=== PATIENT | male | born 1935 | race Caucasian/White ===

== ENCOUNTER 2016-10-18 14:29 | Inpatient (IN) | payer MEDICARE ==
[~2016-10-18] VITALS: Ht 177.8 cm; Wt 76.9 kg
[~2016-10-18 14:29] MED LIST: AMLO10TA2 PO; ASPI-110 PO; DICL75TA PO; GABA400C5 PO; HYDR25TA5 PO; LOVA20TA PO; METO25TA6 PO; MINEOIL2 PO; MULTTAB6; OMEP20TA PO; PROS5TAB PO; STOO100C; [UNRECOGNIZED DRUG - CODE] PO
[2016-10-18 14:34] VITALS: BP 159/82; PULSE 89; RESP 18; TEMP 98; O2SAT 93
--- NOTE | 2016-10-18 17:37 | RADRPT ---
EXAM DATE/TIME: 10/18/2016 16:09 [facility] COMPARISON: No previous studies available for comparison. INDICATIONS : Trauma to pelvis post fall today MEDICAL HISTORY : None. SURGICAL HISTORY : None. ENCOUNTER: Initial ACUITY: 1 day PAIN SCORE: 0/10 LOCATION: Pelvis FINDINGS: Degenerative changes and scoliosis of the lumbar spine are noted. Mild degenerative changes are note d involving the hip joints bilaterally. Radiation seed implants are noted in the expected region of the prostate gland. There is a mixed sclerotic and lytic lesion involving the subtrochanteric region of the right proximal femur. This is nonspecific. There is no acute fracture or dislocation. CONCLUSION: 1. Mixed sclerotic and lytic lesion involving the subtrochanteric region of the right proximal femur which is nonspecific. 2. Degenerative changes and scoliosis of the lower lumbar spine. 3. Degenerative changes involving the hip joints bilaterally. 4. No acute fracture or dislocation. Sean Wu MD on October 18, 2016 at 17:26 Board Certified Radiologist. This report was verified electronically.
--- NOTE | 2016-10-18 17:37 | RADRPT ---
EXAM DATE/TIME: 10/18/2016 16:13 [facility] COMPARISON: No previous studies available for comparison. INDICATIONS : Right ankle pain post fall today MEDICAL HISTORY : None. SURGICAL HISTORY : None. ENCOUNTER: Initial ACUITY: 1 day PAIN SCORE: 10/10 LOCATION: Right entire ankle FINDINGS: There is an Achilles calcaneal spur. There is no acute fracture or dislocation. The ankle mortise i s intact. CONCLUSION: 1. No acute fracture or dislocation. 2. Achilles calcaneal spur. Sean Wu MD on October 18, 2016 at 17:28 Board Certified Radiologist. This report was verified electronically.
--- NOTE | 2016-10-18 17:39 | RADRPT ---
EXAM DATE/TIME: 10/18/2016 16:15 [facility] COMPARISON: No previous studies available for comparison. INDICATIONS : Right foot pain post fall today MEDICAL HISTORY : None. SURGICAL HISTORY : None. ENCOUNTER: Initial ACUITY: 1 day PAIN SCORE: 9/10 LOCATION: Right entire foot FINDINGS: Mild degenerative changes are noted involving the right first tarsometatarsal joint and metatarsophal angeal joint. There is no acute fracture or dislocation. Achilles calcaneal spurring is noted. CONCLUSION: 1. No acute fracture or dislocation. 2. Mild degenerative changes involving the right first tarsometatarsal and metatarsophalangeal joints . 3. Achilles calcaneal spur. Sean Wu MD on October 18, 2016 at 17:31 Board Certified Radiologist. This report was verified electronically.
[2016-10-18 17:54] LABS: AUTOMATED NEUTROPHIL # 11.3 TH/MM3 (1.8-7.7); BASOPHIL % 0.1 % (0.0-2.0); HEMATOCRIT 42.7 % (39.0-51.0); HEMO FLAGS DIFF FINAL; LYMPH % 5.8 % (9.0-44.0); LYMPHOCYTE # 0.8 TH/MM3 (1.0-4.8); MEAN CELL VOLUME 95.1 FL (80.0-100.0); MEAN CORPUSCULAR HEMOGLOBIN 32.7 PG (27.0-34.0); MEAN CORPUSCULAR HGB CONC 34.3 % (32.0-36.0); NEUT % 87.1 % (16.0-70.0); PLATELET COUNT 221 TH/MM3 (150-450); RED BLOOD COUNT 4.49 MIL/MM3 (4.50-5.90); RED CELL DISTRIBUTION WIDTH 15.2 % (11.6-17.2)
[2016-10-18 18:10] LABS: BICARBONATE 25.8 MEQ/L (21.0-32.0); MAGNESIUM 2.5 MG/DL (1.5-2.5); POTASSIUM 3.9 MEQ/L (3.5-5.1)
--- NOTE | 2016-10-18 18:45 | PD ---
HPI Chief Complaint: General Weakness Time Seen by Provider: 18:40 Travel History International Travel<30 days: No Contact w/Intl Traveler<30days: No Traveled to known affect area: No History of Present Illness HPI 81-year-old male that presents to the ED for evaluation of right leg weakness. Per patient he has a chronic history of spinal stenosis. Per patient he had an injection that is new for him on his lower back for the chronic pain which is not sure why he got but ever since she's been okay. Per patient today he was getting up to get his pills and then he went to a different area of his house and he all of a sudden felt like his right leg was numb and fell. Per patient he felt like his legs were likely and he can't walk on them. Per patient mainly on the right than the left. Per patient he had no pain but now he does have some pain on the ankle secondary to the fall. He does state that he did hit his head but denies losing consciousness. Patient does have an abrasion to his right side of the face. He states that at the time when he had the weakness he did not had any palpitations or chest pain. He denies any of this at this time. Denies any dizziness. No lightheadedness. No chest pain or shortness of breath. Per patient he has no pain at this time. He does feel that his leg is weak and numb. He denies any problems with bowel movement or urine. No groin weakness. Per patient she's never had this before. Nothing seems to make it better or worse. PFSH Past Medical History Hx Anticoagulant Therapy: No Heart Rhythm Problems: No Cardiac Catheterization: Yes Cardiovascular Problems: Yes (HTN ) High Cholesterol: Yes Congestive Heart Failure: No Coronary Artery Disease: Yes Diabetes: No Diminished Hearing: No Diverticulitis: Yes Gastrointestinal Disorders: Yes (acid reflux ) GERD: Yes Hypertension: Yes Neurologic: Yes (SPINAL STENOSIS) Immunizations Current: Yes Myocardial Infarction: No Past Surgical History Coronary Artery Bypass Graft: No Tonsillectomy: Yes (as child ) Social History Alcohol Use: No Tobacco Use: No Substance Use: No Allergies-Medications (Allergen,Severity, Reaction): Coded Allergies: Erythromycins (Verified Allergy, Unknown, 10/18/16) Sulfa (Verified Allergy, Unknown, 10/18/16) Codeine (Verified Adverse Reaction, Intermediate, NAUSEA/VOMITING, 10/18/16 ) Reported Meds & Prescriptions Reported Meds & Active Scripts Active Reported Amlodipine (Amlodipine Besylate) 10 Mg Tab 10 Mg PO DAILY Ultram ER (Tramadol HCl) 300 Mg Aliyha 50 Mg PO DAILY Proscar (Finasteride) 5 Mg Tab 5 Mg PO DAILY Do not crush. Multi-Vitamin (Multiple Vitamin) 1 Tab Tab Metoprolol Succinate ER 24 HR (Metoprolol Succinate) 25 Mg Tab 25 Mg PO DAILY Lovastatin 20 Mg Tab 20 Mg PO DAILY Hydrochlorothiazide 25 Mg Tab 25 Mg PO DAILY Omeprazole 20 Mg Tab 20 Mg PO DAILY Gabapentin 400 Mg Cap 1,200 Cap PO Q6HR Aspirin 81 (Aspirin) 81 Mg Tabdr 81 Mg PO DAILY Mineral Oil Liq (Mineral Oil) 15 Ml Liq 30 Ml PO DAILY PRN Diclofenac Sodium DR (Diclofenac Sodium) 75 Mg Tabdr 75 Mg PO BID Review of Systems General / Constitutional: No: Fever, Chills, Weight Gain, Weight Loss, Other Eyes: No: Diploplia, Blurred Vision, Photophobia, Drainage, Redness, Foreign Body Sensation, Pain, Tearing, Blind Spots, Visual changes, Blindness, Other HENT: No: Headaches, Vertigo, Lightheadedness, Sore Throat, Rhinitis, Rhinorrhea, Congestion, Nosebleed, Neck Stiffness, Neck Pain, Masses, Gingival Bleeding, Dental Difficulties, Ear Discharge, Earache, Other Cardiovascular: No: Chest Pain or Discomfort, Palpitations, Irregular Rhythm, Tachycardia, Diaphoresis, Syncope, Dyspnea on exertion, Varicosities, Edema, Cyanosis, Varicosities, Phlebitis, Claudication, Other Respiratory: No: Cough, Shortness of Breath, Wheezing, Sneezing, Orthopnea, Hemoptysis, Stridor, Night Sweats, Pleuritic Pain, Other Gastrointestinal: No: Nausea, Vomiting, Diarrhea, Abdominal Pain, Hematemesis, Hematochezia, Constipation, Changes in Bowel Habits, Indigestion, Dysphagia, Loss of Appetite, Other Genitourinary: No: Urgency, Frequency, Dysuria, Nocturia, Hematuria, Decreased Urinary Output, Oliguria, Hesitancy, Dribbling, Incontinence, Pelvic Pain, Flank Pain, Dyspareunia, Discharge, Dysmenorrhea, Menorrhagia, Metorrhagia, Vaginal Bleeding, Other Musculoskeletal: Positive: Weakness, No: Myalgias, Arthralgias, Limited ROM, Cramping, Edema, Pain, Atrophy, Other Skin: No Rash, No Itching, No Dryness, No Lumps, No Hives, No Change in Pigmentation, No Change in nails, No Alopecia, No Lesions, No Breast Lumps, No Breast Tenderness, No Breast Swelling, No Other Neurologic: Positive: Weakness, Paresthesia, Sensory Disturbance, No: Dizziness, Syncope, Focal Abnormalities, Coordination Problem, Tremor, Ataxia, Headache, Change in Mentation, Slurred Speech, Incontinence, Seizures, Other Psychiatric: No: Anxiety, Depression, Suicidal Ideations, Disorder of Thought, Mood Disorder, Substance Abuse, Homicidal Ideation, Other Endocrine: No: Heat Intolerance, Cold Intolerance, Polyuria, Polydipsia, Other Hematologic/Lymphatic: No: Easy Bruising, Lymph Node Enlargement, Other Physical Exam Narrative GENERAL: SKIN: Warm and dry. HEAD: Atraumatic. Normocephalic. EYES: Pupils equal and round 4 mm reactive to light and accommodation. No scleral icterus. No injection or drainage. ENT: No nasal bleeding or discharge. Mucous membranes pink and moist. Tongue is midline. No uvula deviation. NECK: Trachea midline. No JVD. CARDIOVASCULAR: Regular rate and rhythm. No murmurs, S3, S4. RESPIRATORY: No accessory muscle use. Clear to auscultation. Breath sounds equal bilaterally. GASTROINTESTINAL: Abdomen soft, non-tender, nondistended. Hepatic and splenic margins not palpable. MUSCULOSKELETAL: Extremities without clubbing, cyanosis, or edema. No obvious deformities. Full range of motion of the upper and lower extremities bilaterally. 5 out of 5 strength bilaterally. Patient does have sensation deficits on the right leg compared to the left. Patient does have 2+ DTRs. Babinski negative bilaterally. 2+ pulses bilaterally. NEUROLOGICAL: Awake and alert. No obvious cranial nerve deficits. Motor grossly within normal limits. Five out of 5 muscle strength in the arms and legs. Normal speech. PSYCHIATRIC: Appropriate mood and affect; insight and judgment normal. Data Data Last Documented VS Vital Signs Date Time Temp Pulse Resp B/P Pulse Ox O2 Delivery O2 Flow Rate FiO2 10/18/16 14:34 98.0 89 18 159/82 93 Orders Complete Blood Count With Diff (10/18/16 15:55) Basic Metabolic Panel (Bmp) (10/18/16 15:55) Magnesium (Mg) (10/18/16 15:55) Iv Access Insert/Monitor (10/18/16 15:55) Ankle, Complete ([id number]) (10/18/16 15:55) Foot, Complete ([id number]) (10/18/16 15:55) Ice/Cold Pack (10/18/16 15:55) Pelvis, Ap Only (Routine) (10/18/16 15:55) Mri L Spine W&W/O Contrast (10/18/16 ) Mri T Spine W & W/O Contrast (10/18/16 ) Mri C Spine W&W/O Contrast (10/18/16 ) Ct Brain W/O Iv Contrast(Rout) (10/18/16 ) Lorazepam Inj (Ativan Inj) (10/18/16 19:15) Lorazepam Inj (Ativan Inj) (10/18/16 20:15) Gadodiamide Pf Inj (Omniscan Pf Inj) (10/18/16 21:01) Chest, Single Ap (10/18/16 ) Labs Laboratory Tests Test 10/18/16 17:40 White Blood Count 13.0 TH/MM3 Red Blood Count 4.49 MIL/MM3 Hemoglobin 14.7 GM/DL Hematocrit 42.7 % Mean Corpuscular Volume 95.1 FL Mean Corpuscular Hemoglobin 32.7 PG Mean Corpuscular Hemoglobin 34.3 % Concent Red Cell Distribution Width 15.2 % Platelet Count 221 TH/MM3 Mean Platelet Volume 7.0 FL Neutrophils (%) (Auto) 87.1 % Lymphocytes (%) (Auto) 5.8 % Monocytes (%) (Auto) 7.0 % Eosinophils (%) (Auto) 0.0 % Basophils (%) (Auto) 0.1 % Neutrophils # (Auto) 11.3 TH/MM3 Lymphocytes # (Auto) 0.8 TH/MM3 Monocytes # (Auto) 0.9 TH/MM3 Eosinophils # (Auto) 0.0 TH/MM3 Basophils # (Auto) 0.0 TH/MM3 CBC Comment DIFF FINAL Differential Comment Sodium Level 136 MEQ/L Potassium Level 3.9 MEQ/L Chloride Level 101 MEQ/L Carbon Dioxide Level 25.8 MEQ/L Anion Gap 9 MEQ/L Blood Urea Nitrogen 27 MG/DL Creatinine 1.05 MG/DL Estimat Glomerular Filtration 68 ML/MIN Rate Random Glucose 109 MG/DL Calcium Level 8.8 MG/DL Magnesium Level 2.5 MG/DL MDM Medical Decision Making Medical Screen Exam Complete: Yes Emergency Medical Condition: Yes Medical Record Reviewed: Yes Interpretation(s) CBC & BMP Diagram 10/18/16 17:40 Differential Diagnosis Cervicitis versus discitis versus fall versus weakness versus neuropathy versus cauda equina versus spinal abscess Narrative Course 81-year-old male that presents to the ED for evaluation of right leg weakness. Patient was properly examined and was found to have signs and symptoms consistent with appears to be right leg weakness. Unclear etiology at this time but there is some concern for infection secondary to the recent shot that apparently is new for the patient. I spoke with my attending Dr. Camacho who recommends MRI with contrast. Labs were drawn. Patient agrees first to proceed. X-rays were done of the ankle as well as CT of the head to rule out bleed and fracture secondary to the fall. Case was signed out to Dr. Beebe who will dispo the patient. Antonio Pedroza Oct 18, 2016 18:45
[2016-10-18] MEDS ORDERED: LORazepam 2 MG/ML VIAL IV PUSH ONE ×2 (19:15→20:15)
[2016-10-18] MEDS ORDERED: GADODIAMIDE PF 287 MG/ML 5 ML VIAL (for RAD MRI) IV ONE (21:01)
--- NOTE | 2016-10-18 21:33 | RADRPT ---
EXAM DATE/TIME: 10/18/2016 20:43 [facility] COMPARISON: No previous studies available for comparison. INDICATIONS : Right leg weakness causing fall with head trauma. RADIATION DOSE: 41.58 CTDIvol (mGy) MEDICAL HISTORY : Hypertension. Chronic obstructive pulmonary disease. Carcinoma, prostate.Spinal stenosis. SURGICAL HISTORY : Tonsillectomy. ENCOUNTER: Initial ACUITY: 1 day PAIN SCALE: 5/10 LOCATION: cranial TECHNIQUE: Multiple contiguous axial images were obtained of the head. Using automated exposure control and adj ustment of the mA and/or kV according to patient size, radiation dose was kept as low as reasonably a chievable to obtain optimal diagnostic quality images. FINDINGS: CEREBRUM: The ventricles are normal for age. No evidence of midline shift, mass lesion, hemorrhage or acute in farction. No extra-axial fluid collections are seen. POSTERIOR FOSSA: The cerebellum and brainstem are intact. The 4th ventricle is midline. The cerebellopontine angle i s unremarkable. EXTRACRANIAL: The visualized portion of the orbits is intact. SKULL: The calvaria is intact. No evidence of skull fracture. CONCLUSION: Normal examination for a patient of this age. Cresencio King MD on October 18, 2016 at 21:31 Board Certified Radiologist. This report was verified electronically.
--- NOTE | 2016-10-18 21:44 | RADRPT ---
EXAM DATE/TIME: 10/18/2016 19:35 [facility] COMPARISON: No previous studies available for comparison. INDICATIONS : Inability to ambulate. CONTRAST: 20 cc Omniscan (gadodiamide) IV MEDICAL HISTORY : Injections in lumbar spine. SURGICAL HISTORY : Tonsillectomy. ENCOUNTER: Initial ACUITY: 3 day PAIN SCORE: 0/10 LOCATION: neck TECHNIQUE: Multiplanar, multisequence MRI examination of the cervical spine was performed. FINDINGS: No abnormal enhancing lesions in the cervical spine. No cord masses or cord edema. No significant cor d compression. There is degenerative disc disease at C3-4-5-6-7 with osteophytic ridging effacing the thecal sac ant eriorly without significant cord compression. No fracture or spondylolisthesis. CONCLUSION: 1. No acute findings within the cervical spine. No fracture or spondylolisthesis. No significant cord compression or cord edema. Moderate degenerative disc disease results in effacement of the thecal sa c around the cord at multiple levels between C3 and C7 but without significant cord compression. Cresencio King MD on October 18, 2016 at 21:40 Board Certified Radiologist. This report was verified electronically.
--- NOTE | 2016-10-18 21:47 | RADRPT ---
EXAM DATE/TIME: 10/18/2016 19:35 [facility] COMPARISON: No previous studies available for comparison. INDICATIONS : Inability to ambulate. CONTRAST: 20 cc Omniscan (gadodiamide) IV MEDICAL HISTORY : Injections in Lumbar spine. SURGICAL HISTORY : Tonsillectomy. ENCOUNTER: Initial ACUITY: 3 day PAIN SCORE: 0/10 LOCATION: low back TECHNIQUE: Multiplanar multisequence MRI of the lumbar spine was performed with and without contrast. FINDINGS: No abnormal enhancing lesions within the spinal canal of the lumbar spine. There is some enhancement around the posterior elements at L3-4-5 related to degenerative changes. No significant stenosis at Q72-T1-D9-L8. L3-4 a broad-based posterior disc protrusion and a focal moderate to severe canal stenosis and latera l recess stenosis without significant neural foraminal stenosis. At L4-5 there is a broad-based posterior mild disc protrusion with a mild canal and lateral recess st enosis. At L5-S1 there are pars defects with minimal anterolisthesis. There is a moderate central canal steno sis and moderate left-sided neural foraminal stenosis. CONCLUSION: 1. At L3-4 there is a focal moderate to severe central canal and lateral recess stenosis. 2. At L4-5 there is a mild canal and lateral recess stenosis. 3. 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 Moderate left-sided neural foraminal stenosis. 4. Facet arthropathy posteriorly with some enhancement around the posterior facet joints and between the spinous processes. Cresencio King MD on October 18, 2016 at 21:42 Board Certified Radiologist. This report was verified electronically.
--- NOTE | 2016-10-18 21:49 | RADRPT ---
EXAM DATE/TIME: 10/18/2016 19:35 [facility] COMPARISON: No previous studies available for comparison. INDICATIONS : Inability to ambulate. CONTRAST: 20 cc Omniscan (gadodiamide) IV MEDICAL HISTORY : Injections in Lumbar spine. SURGICAL HISTORY : Tonsillectomy. ENCOUNTER: Initial ACUITY: 3 day PAIN SCORE: 0/10 LOCATION: t-spine TECHNIQUE: Multiplanar multisequence MRI of the thoracic spine was performed. FINDINGS: VERTEBRA: Normal vertebral body height. Homogeneous marrow signal. ALIGNMENT: Normal. CORD: Normal position and configuration. POST CONTRAST: No abnormal areas of contrast enhancement seen. T1-T2: Normal. T2-T3: The thecal sac has a normal diameter. No evidence of disc bulge or protrusion. T3-T4: The thecal sac has a normal diameter. No evidence of disc bulge or protrusion. T4-T5: The thecal sac has a normal diameter. No evidence of disc bulge or protrusion. T5-T6: The thecal sac has a normal diameter. No evidence of disc bulge or protrusion. T6-T7: The thecal sac has a normal diameter. No evidence of disc bulge or protrusion. T7-T8: The thecal sac has a normal diameter. No evidence of disc bulge or protrusion. T8-T9: The thecal sac has a normal diameter. No evidence of disc bulge or protrusion. T9-T10: The thecal sac has a normal diameter. No evidence of disc bulge or protrusion. T10-T11: The thecal sac has a normal diameter. No evidence of disc bulge or protrusion. T11-T12: The thecal sac has a normal diameter. No evidence of disc bulge or protrusion. T12-L1: The thecal sac has a normal diameter. No evidence of disc bulge or protrusion. CONCLUSION: 1. No canal stenosis. No discrete disc protrusions and no cord impingement or cord edema. Mild to mod erate degenerative disc disease throughout the thoracic spine. Cresencio King MD on October 18, 2016 at 21:46 Board Certified Radiologist. This report was verified electronically.
[2016-10-18 22:00] VITALS: BP 146/74; PULSE 74; RESP 18; O2SAT 94
[2016-10-18] MEDS ORDERED: ASPIRIN 325 MG TAB PO ONE (23:00)
--- NOTE | 2016-10-18 23:00 | RADRPT ---
EXAM DATE/TIME: 10/18/2016 22:02 [facility] COMPARISON: No previous studies available for comparison. INDICATIONS : Short of breath with a cough. MEDICAL HISTORY : Emphysema. Carcinoma, prostatic. SURGICAL HISTORY : None. ENCOUNTER: Initial ACUITY: 1 day PAIN SCORE: 3/10 LOCATION: Bilateral chest FINDINGS: A single view of the chest demonstrates the lungs to be symmetrically aerated without evidence of mas s, infiltrate or effusion. Subsegmental opacity present at the lung bases. The cardiomediastinal con tours are unremarkable. Osseous structures are intact. CONCLUSION: 1. Linear scarring and atelectasis at the lung bases. No effusion or pneumothorax. Cresencio King MD on October 18, 2016 at 22:58 Board Certified Radiologist. This report was verified electronically.
[2016-10-19] VITALS (7 sets, daily range): BP systolic 123–146; BP diastolic 70–86; PULSE 76–88; RESP 16–18; TEMP 97.2–99.2; O2SAT 93–97
[2016-10-19] MEDS ORDERED: traMADol HCL 50 MG TAB PO ONE (00:45)
[2016-10-19] MEDS: GABAPENTIN 400 MG CAP PO SCH ×4 (00:51→18:05)
[2016-10-19] MEDS: PRAVASTATIN SOD 20 MG TAB PO SCH ×2 (00:52→21:00)
--- NOTE | 2016-10-19 00:58 | PD ---
Physical Exam Narrative Patient originally seen in triage by the PA, where workup was initiated. Patient is an 81-year-old male with history of spinal stenosis, who comes in after both his legs went numb tonight and he fell to the ground. He had a facet block done on Friday for back pain. He says he was feeling fine until all of a sudden this happen today. He says when it happened he felt like he couldn't move. He says he also felt weakness in his arms, and thought he was having a stroke. There is a question of whether he had some left-sided weakness at the time. He says otherwise he has been feeling fine. He denies having any fever or chills. He denies cough or cold. He denies headache, nausea, vomiting. Data Data Last Documented VS Vital Signs Date Time Temp Pulse Resp B/P Pulse Ox O2 Delivery O2 Flow Rate FiO2 10/18/16 14:34 98.0 89 18 159/82 93 Orders Complete Blood Count With Diff (10/18/16 15:55) Basic Metabolic Panel (Bmp) (10/18/16 15:55) Magnesium (Mg) (10/18/16 15:55) Iv Access Insert/Monitor (10/18/16 15:55) Ankle, Complete ([id number]) (10/18/16 15:55) Foot, Complete ([id number]) (10/18/16 15:55) Ice/Cold Pack (10/18/16 15:55) Pelvis, Ap Only (Routine) (10/18/16 15:55) Mri L Spine W&W/O Contrast (10/18/16 ) Mri T Spine W & W/O Contrast (10/18/16 ) Mri C Spine W&W/O Contrast (10/18/16 ) Ct Brain W/O Iv Contrast(Rout) (10/18/16 ) Lorazepam Inj (Ativan Inj) (10/18/16 19:15) Lorazepam Inj (Ativan Inj) (10/18/16 20:15) Gadodiamide Pf Inj (Omniscan Pf Inj) (10/18/16 21:01) Chest, Single Ap (10/18/16 ) Aspirin (Aspirin) (10/18/16 23:00) Mri Brain W/O Contrast (10/18/16 ) Admit Order (Ed Use Only) (10/18/16 ) Labs Laboratory Tests Test 10/18/16 17:40 White Blood Count 13.0 TH/MM3 Red Blood Count 4.49 MIL/MM3 Hemoglobin 14.7 GM/DL Hematocrit 42.7 % Mean Corpuscular Volume 95.1 FL Mean Corpuscular Hemoglobin 32.7 PG Mean Corpuscular Hemoglobin 34.3 % Concent Red Cell Distribution Width 15.2 % Platelet Count 221 TH/MM3 Mean Platelet Volume 7.0 FL Neutrophils (%) (Auto) 87.1 % Lymphocytes (%) (Auto) 5.8 % Monocytes (%) (Auto) 7.0 % Eosinophils (%) (Auto) 0.0 % Basophils (%) (Auto) 0.1 % Neutrophils # (Auto) 11.3 TH/MM3 Lymphocytes # (Auto) 0.8 TH/MM3 Monocytes # (Auto) 0.9 TH/MM3 Eosinophils # (Auto) 0.0 TH/MM3 Basophils # (Auto) 0.0 TH/MM3 CBC Comment DIFF FINAL Differential Comment Sodium Level 136 MEQ/L Potassium Level 3.9 MEQ/L Chloride Level 101 MEQ/L Carbon Dioxide Level 25.8 MEQ/L Anion Gap 9 MEQ/L Blood Urea Nitrogen 27 MG/DL Creatinine 1.05 MG/DL Estimat Glomerular Filtration 68 ML/MIN Rate Random Glucose 109 MG/DL Calcium Level 8.8 MG/DL Magnesium Level 2.5 MG/DL MDM Supervised Visit with NIKO: Yes Narrative Course Currently, patient has equal strength in his bilateral lower extremities as well as upper extremities. He is complaining of pain to his right ankle. X- ray of the ankle was negative for fracture. Labs were sent show a white count of 13. However patient has no infectious symptoms. MRI of the entire spine was performed shows degenerative changes, no signs of infection or abscess. No spinal impingement seen. CT of the head was performed shows no acute abnormalities. X-rays of the ankle , foot, pelvis, chest show no acute abnormalities. I spoke with Dr. Alexander of neurology regarding the patient. He suggests aspirin as well as MRI of the brain and carotid ultrasound to complete a stroke workup. Patient will be admitted for further management. Diagnosis Primary Impression: Weakness Additional Impression: Fall Qualified Code: W19.XXXA - Fall, initial encounter Admitting Information Admitting Physician Requests: Admit Dominga Beebe MD Oct 19, 2016 00:58
[2016-10-19] MEDS: traMADol HCL 50 MG TAB PO SCH ×2 (08:24→17:10)
--- NOTE | 2016-10-19 09:14 | RADRPT ---
EXAM DATE/TIME: 10/19/2016 08:48 [facility] COMPARISON: CT BRAIN W/O CONTRAST, October 18, 2016, 20:43. INDICATIONS : Inability to ambulate. MEDICAL HISTORY : Steroid injections lumbar spine. SURGICAL HISTORY : Tonsillectomy. ENCOUNTER: Subsequent ACUITY: 2 day PAIN SCORE: 0/10 LOCATION: cranial TECHNIQUE: Multiplanar, multisequence MRI of the brain was performed without contrast. FINDINGS: CEREBRUM: The ventricles are normal for age. No evidence of midline shift, mass lesion, hemorrhage or acute in farction. No extraaxial fluid collections are seen. The pituitary gland and suprasellar cistern are normal in configuration. WHITE MATTER: Scattered T2 signal abnormalities are seen in the white matter. POSTERIOR FOSSA: The cerebellum and brainstem are intact. The 4th ventricle is midline. The cerebellopontine angle is unremarkable. The cerebellar tonsils are normal in position. DIFFUSION IMAGING: Focal high flair abnormality in the left frontal parafalcine tellez matter consistent with acute lacuna r infarct. EXTRACRANIAL: The visualized portions of the orbits and paranasal sinuses are unremarkable. T2 signal abnormality w ithin both mastoid air cells. CONCLUSION: 1. Focal lacunar infarct left parafalcine frontal lobe. 2. 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 Collin Henry MD on October 19, 2016 at 9:08 Board Certified Radiologist. This report was verified electronically.
[2016-10-19] MEDS: SODIUM CHLOR 0.9% 1000 ML INJ 1,000 ML IV SCH ×2 (10:31→20:23)
[2016-10-19] MEDS: CLOPIDOGREL 75 MG TAB PO SCH (11:11)
[2016-10-19] MEDS: ASPIRIN EC 325 MG TABEC PO SCH (11:11)
[2016-10-19] MEDS ORDERED: LORazepam 2 MG/ML VIAL IV PUSH ONE (11:15)
[2016-10-19] MEDS ORDERED: GADODIAMIDE PF 287 MG/ML 20 ML VIAL (for RAD MRI) IV ONE (12:03)
--- NOTE | 2016-10-19 12:37 | MB ---
cc: ANDREI JOE DATE OF CONSULTATION: 10/19/2016. HISTORY OF PRESENT ILLNESS: The patient is an 81-year-old right-handed man with a history of hypertension, hypercholesterolemia, stable prostate cancer without metastasis who has had some low back pain. He has spinal stenosis, multilevel. He usually takes a baby aspirin a day but not for the last week as he had a facet injection done on Friday, which was about three days ago, and then yesterday, Friday, he felt like his legs gave out like they were numb, more on the right than the left, and he fell to the ground and hurt his right arm. No chest pain, palpitations or headache associated with that or vision change. He came into the emergency room. MRI of the cervical and thoracic spine was negative. MRI of the lumbosacral spine showed multilevel degenerative joint disease. MRI of the brain however shows a left acute small peripheral anterior cerebral artery infarct, medial frontoparietal region right on the left medial region by the interhemispheric fissure. He was in the hospital here with leg weakness from the emergency room back in 2013. He says his legs felt like Jello. He let himself down to the ground at that time. Brief generalized weakness in both of his legs, not one more than the other. ALLERGIES: 1. ERYTHROMYCIN. 2. SULFA. 3. CODEINE. MEDICATIONS: 1. Ultram. 2. Amlodipine. 3. Proscar. 4. A multivitamin. 5. Metoprolol. 6. Lovastatin. 7. Hydrochlorothiazide. 8. Omeprazole. 9. Gabapentin 1200 q. 6 hours. 10. A baby aspirin but he was not taking it for the last week. 11. Diclofenac but not for the last week. 12. Mineral oil. REVIEW OF SYSTEMS: He denied any diabetes, RI, stents, angioplasty, atrial fibrillation, Coumadin, renal, hepatic or pulmonary disease, thyroid disease, lupus, ulcer, seizure or prior stroke. SOCIAL HISTORY: He is not a smoker or a drinker. He lives with his . FAMILY HISTORY: Negative cancer, seizure, or stroke. PHYSICAL EXAMINATION: VITAL SIGNS: He has been in sinus rhythm, afebrile, 78, 18, 141/86. NECK: There were no carotid bruits. HEART: Regular rhythm. I do not detect a murmur. NEUROLOGICAL EXAMINATION: Pupils are equal. Visual rocha are full. Extraocular movements intact without nystagmus. Face is symmetric with normal sensation. Tongue was midline. No drift. He had normal strength in upper and lower extremities bilaterally including the right iliopsoas, hamstrings, quadriceps, tibialis anterior. Toes are downgoing bilaterally. DTRs are 2+ symmetric at the knees. Pin prick was intact throughout as was vibratory sense. He is not ataxic on [id number] or right [id number]. Speech is fluent. He is not aphasic. LABS: White count is 13, otherwise CBC was normal. His metabolic profile was essentially normal. LDL has been elevated back in 2012. IMAGING STUDIES: MRI of the cervical and thoracic spine as noted were negative. MRI of the lumbosacral spine shows multilevel degenerative joint disease. MRI of the brain as noted in my note. He had an ankle x-ray that showed no fracture. Pelvic x-ray shows a lytic lesion in the right proximal femur nonspecific. IMPRESSION: Small left infarct cortically based. RECOMMENDATIONS / PLAN: 1. We will check an echocardiogram, Holter, MRA of the brain and neck. 2. Put him on Plavix now and stop aspirin in three days. 3. He should continue on his statin. 4. Will check his LDL. 5. Will give him some IV hydration. 6. If his MRAs are negative, he might be able to be discharged tomorrow, but he will need a Holter put on and if his echocardiogram is negative, might be able to discharge tomorrow. 7. He will need a Holter put on and if that is negative, he will need at least a 30-day monitor as an outpatient. 8. Will also check a troponin on him. 9. As far as the lytic lesion in the femur goes, I would defer to the medical team on that. I will be following him with you in the hospital. MD BARBRA Hernandes/ROSE /10:29 AM /12:11 PM
--- NOTE | 2016-10-19 12:57 | RADRPT ---
EXAM DATE/TIME: 10/19/2016 11:53 [facility] COMPARISON: No previous studies available for comparison. INDICATIONS : Inability to ambulate. MEDICAL HISTORY : Lumbar steroid injections. SURGICAL HISTORY : Tonsillectomy. ENCOUNTER: Initial ACUITY: 1 day PAIN SCORE: 0/10 LOCATION: cranial Please note a normal MRA of the brain does not entirely exclude the possibility of a small aneurysm, nor the possibility of distal intracranial vessel disease. TECHNIQUE: 3D time of flight MRA was performed. Source images, multiplanar STS MIP, and 3D volume MIP reconstru ctions were reviewed. FINDINGS: There is excellent visualization of the major intracranial arteries out to the second-order branch ve ssels. There is severe narrowing within the right M1 segment and almost complete occlusion. There is filling of distal right middle cerebral artery branches. Left middle cerebral artery unremarkable. Th ere is a hypoplastic right A1 segment. There is a single AP segment of the anterior cerebral artery, normal variant. Dominant left vertebral artery. CONCLUSION: Severe narrowing of the right M1 segment and almost complete occlusion of this segment. There is fill ing of the distal right middle cerebral artery. Collin Henry MD on October 19, 2016 at 12:53 Board Certified Radiologist. This report was verified electronically.
--- NOTE | 2016-10-19 12:59 | RADRPT ---
EXAM DATE/TIME: 10/19/2016 11:53 [facility] COMPARISON: No previous studies available for comparison. INDICATIONS : Weakness. CONTRAST: 20 cc Omniscan (gadodiamide) IV MEDICAL HISTORY : Lumbar steroid injections. SURGICAL HISTORY : Tonsillectomy. ENCOUNTER: Initial ACUITY: 2 day PAIN SCORE: 0/10 LOCATION: cranial Percent stenosis is calculated using the diameter of the stenotic region over the diameter of the nor mal distal internal carotid artery. TECHNIQUE: Bolus infused MRA of the extracranial circulation was performed using a neurovascular coil. Post pro cessing was performed including rotationg subvolume maximum intensity projections of each carotid art chris, rotating full volume maximum intensity projections of both carotid arteries, sagittal and rendon l sliding thin slab reformations of each carotid artery, and left oblique sliding thin slab reformati on through the aortic arch to include the origin of the arch branch vessels. FINDINGS: AORTIC ARCH: There is a three vessel origin of the great vessels from the aorta. No evidence of ostial narrowing. RIGHT CAROTID: The common carotid artery is intact. The carotid bulb has a normal configuration without ulceration or narrowing. The internal carotid artery lumen is smooth without stenosis. The external carotid ar natan is intact. LEFT CAROTID: The common carotid artery is intact. The carotid bulb has a normal configuration without ulceration or narrowing. The internal carotid artery lumen is smooth without stenosis. The external carotid ar natan is intact. VERTEBRALS: Dominant left vertebral artery. No stenotic lesions are seen. CONCLUSION: 1. No significant stenosis within the carotid arteries. 2. Dominant left vertebral artery. Collin Henry MD on October 19, 2016 at 12:56 Board Certified Radiologist. This report was verified electronically.
[2016-10-19 16:18] LABS: CREATINE KINASE 187 U/L (39-308); FREE T4 1.14 NG/DL (0.76-1.46); HDL CHOLESTEROL 65.1 MG/DL (40.0-60.0); LDL CHOLESTEROL 80 MG/DL (0-99)
--- NOTE | 2016-10-19 19:07 | HHI.HP ---
HPI Service [facility] Hospitalists Primary Care Physician Kings Sánchez MD Admission Diagnosis CVA Chief Complaint: fall Travel History International Travel<30 Days: No Contact w/Intl Traveler <30 Da: No Traveled to Known Affected Are: No History of Present Illness Pt has severe lumbar spine stenosis and neuroforaminal stenosis.Gets routing injections from pain management. Suddenly lost strength in both legs and fell to the floor and was unable to get up. Family says his right arm was also weak and he was confused when they found him. no hx of cva or afib. neuroimaging shows acute left frontal cva. probably local atherosclerosis. Review of Systems Other weak legs and right arm Past Family Social History Past Medical History htn cad bph severe lumbar spinal stenosis/injections. Reported Medications Amlodipine (Amlodipine Besylate) 10 Mg Tab 10 Mg PO DAILY Ultram ER (Tramadol HCl) 300 Mg Aliyah 50 Mg PO DAILY Proscar (Finasteride) 5 Mg Tab 5 Mg PO DAILY Do not crush. Multi-Vitamin (Multiple Vitamin) 1 Tab Tab Metoprolol Succinate ER 24 HR (Metoprolol Succinate) 25 Mg Tab 25 Mg PO DAILY Lovastatin 20 Mg Tab 20 Mg PO DAILY Hydrochlorothiazide 25 Mg Tab 25 Mg PO DAILY Omeprazole 20 Mg Tab 20 Mg PO DAILY Gabapentin 400 Mg Cap 1,200 Cap PO Q6HR Aspirin 81 (Aspirin) 81 Mg Tabdr 81 Mg PO DAILY Mineral Oil Liq (Mineral Oil) 15 Ml Liq 30 Ml PO DAILY PRN Diclofenac Sodium DR (Diclofenac Sodium) 75 Mg Tabdr 75 Mg PO BID Allergies: Coded Allergies: Erythromycins (Verified Allergy, Unknown, 10/18/16) Sulfa (Verified Allergy, Unknown, 10/18/16) Codeine (Verified Adverse Reaction, Intermediate, NAUSEA/VOMITING, 10/18/16 ) Family History nc Social History no etoh/tob Physical Exam Vital Signs heart reg lung cta abd s/nt ext no edema lying in bed 5/5 strength ue/le's 2 plus reflexes. cn 2-12 intact Vital Signs Date Time Temp Pulse Resp B/P Pulse Ox O2 Delivery O2 Flow Rate FiO2 10/19/16 16:00 99.2 81 18 123/70 93 10/19/16 12:00 97.5 88 18 142/71 93 10/19/16 08:00 97.3 78 18 141/86 94 10/19/16 03:00 76 2/11/17 02:56 97.5 81 16 146/77 94 10/19/16 01:00 78 18 134/70 95 Room Air 10/18/16 22:00 74 18 146/74 94 Room Air Laboratory Laboratory Tests Test 10/19/16 14:41 Erythrocyte Sedimentation Rate 17 Total Creatine Kinase 187 Troponin I LESS THAN 0.02 Triglycerides Level 197 Cholesterol Level 184 LDL Cholesterol 80 HDL Cholesterol 65.1 Cholesterol/HDL Ratio 2.82 Vitamin B12 Level 586 Free Thyroxine 1.14 Thyroid Stimulating Hormone 3.350 3rd Gen Result Diagram: 10/18/16173910/18/161739 Assessment and Plan Problem List: (1) Acute CVA (cerebrovascular accident) Status: Acute Plan: Pt has severe lumbar spine stenosis and neuroforaminal stenosis. Gets routing injections from pain management. Suddenly lost strength in both legs and fell to the floor and was unable to get up. Family says his right arm was also weak and he was confused when they found him. neuroimaging shows acute left frontal cva. probably local atherosclerosis. so far no evidence for thrombembolic dz f/u holter and echo neurology consuted and w/up initiated PT eval. d/c hob flat. cont plavix/statin dvt prophylaxis (2) Spinal stenosis Status: Chronic Plan: multiple levels of lumbar spinal stenosis/neuroforaminal stenosis but more severe central spinal stenosis at L3/4 Pt follows with pain management and gets injections. (3) Fall Status: Acute Plan: see above (4) Weakness Status: Acute Plan: see above (5) HTN (hypertension) Status: Chronic Physician Certification 2 Midnight Certification Type: Admission for Inpatient Services Order for Inpatient Services 3The services are ordered in accordance with Medicare regulations or non- Medicare payer requirements, as applicable. In the case of services not specified as inpatient-only, they are appropriately provided as inpatient services in accordance with the 2-midnight benchmark. Estimated LOS (days): 3 3 days is the estimated time the patient will need to remain in the hospital, assuming treatment plan goals are met and no additional complications. Post-Hospital Plan: Home Problem Qualifiers (1) Fall: Qualified Code: W19.XXXA - Fall, initial encounter Hugo Delacruz MD Oct 19, 2016 19:07
[2016-10-19 22:06] LABS: BACTERIA, URINE RARE /hpf; BLOOD, URINE NEG (NEG); COMMENT (UR) CULT NOT INDICATED; CULTURE IF INDICATED CULT NOT INDICATED; GLUCOSE,URINE NEG (NEG); KETONE, URINE NEG (NEG); MUCUS URINE FEW /lpf (OCC); NITRITE,URINE NEG (NEG); PH, URINE 5.5 (5.0-8.5); URINE COLOR YELLOW (YELLW/STRAW)
[2016-10-20] VITALS (7 sets, daily range): BP systolic 120–159; BP diastolic 61–87; PULSE 80–91; RESP 18–20; TEMP 95.7–97.3; O2SAT 91–95
[2016-10-20] MEDS: traMADol HCL 50 MG TAB PO SCH ×4 (02:26→22:53)
[2016-10-20] MEDS: GABAPENTIN 400 MG CAP PO SCH ×5 (02:27→22:52)
[2016-10-20 07:46] LABS: AUTOMATED NEUTROPHIL # 5.3 TH/MM3 (1.8-7.7); BASOPHIL % 0.2 % (0.0-2.0); EOSINOPHIL # 0.1 TH/MM3 (0-0.4); EOSINOPHIL % 0.9 % (0.0-4.0); HEMATOCRIT 43.6 % (39.0-51.0); HEMO FLAGS DIFF FINAL; LYMPH % 14.2 % (9.0-44.0); MEAN CELL VOLUME 94.9 FL (80.0-100.0); MEAN CORPUSCULAR HEMOGLOBIN 32.4 PG (27.0-34.0); MEAN CORPUSCULAR HGB CONC 34.1 % (32.0-36.0); MONO % 12.6 % (0.0-8.0); NEUT % 72.1 % (16.0-70.0); PLATELET COUNT 205 TH/MM3 (150-450); RED BLOOD COUNT 4.59 MIL/MM3 (4.50-5.90); RED CELL DISTRIBUTION WIDTH 14.8 % (11.6-17.2); WHITE BLOOD COUNT 7.3 TH/MM3 (4.0-11.0)
[2016-10-20] MEDS: ASPIRIN EC 325 MG TABEC PO SCH (08:31)
[2016-10-20] MEDS: PANTOPRAZOLE SOD 20 MG DELAYED RELEASE TAB PO SCH (08:31)
[2016-10-20] MEDS: FINASTERIDE 5 MG TAB PO SCH (08:31)
[2016-10-20] MEDS: CLOPIDOGREL 75 MG TAB PO SCH (08:31)
[2016-10-20] MEDS: SODIUM CHLOR 0.9% 1000 ML INJ 1,000 ML IV SCH (08:34)
[2016-10-20] MEDS ORDERED: PRAVASTATIN SOD 20 MG TAB PO SCH (09:00)
--- NOTE | 2016-10-20 09:32 | HHI.PR ---
Subjective Remarks sr Objective Vital Signs Date Time Temp Pulse Resp B/P Pulse Ox O2 Delivery O2 Flow Rate FiO2 10/20/16 08:00 97.2 81 18 159/78 91 10/20/16 04:00 96.7 91 20 141/70 95 10/20/16 02:00 95 10/20/16 00:00 97.2 80 18 128/69 91 10/19/16 20:00 97.2 81 18 142/75 97 10/19/16 16:00 99.2 81 18 123/70 93 10/19/16 12:00 97.5 88 18 142/71 93 I/O 10/19/16 10/19/16 10/19/16 10/20/16 10/20/16 10/20/16 07:00 15:00 23:00 07:00 15:00 23:00 Intake Total 360 ml 960 ml 480 ml 240 ml Output Total 200 ml 400 ml Balance 160 ml 960 ml 480 ml -160 ml Intake Oral 360 ml 960 ml 480 ml 240 ml Output Urine Total 200 ml 400 ml # Voids 8 2 1 # Bowel Movements 0 0 0 Result Diagram: 10/20/16 0657 10/18/16 1740 Other Results mra neck neg mra cow likley nl i think r mca takes turn so artifact trop ldl nl Objective Remarks awake alert 5/5 ble Assessment and Plan Assessment and Plan imp small cva will check cta but r mca likley nl if echo and cta neg [facility] U[facility] Alexander MD Oct 20, 2016 09:32
--- NOTE | 2016-10-20 11:18 | HHI.PR ---
Subjective Remarks no new complaints Objective Vitals heart reg lung cta abd s/nte ext no edema Vital Signs Date Time Temp Pulse Resp B/P Pulse Ox O2 Delivery O2 Flow Rate FiO2 10/20/16 08:00 97.2 81 18 159/78 91 10/20/16 04:00 96.7 91 20 141/70 95 10/20/16 02:00 95 10/20/16 00:00 97.2 80 18 128/69 91 10/19/16 20:00 97.2 81 18 142/75 97 10/19/16 16:00 99.2 81 18 123/70 93 10/19/16 12:00 97.5 88 18 142/71 93 10/19/16 10/19/16 10/20/16 15:00 23:00 07:00 Intake Total 960 ml 480 ml 240 ml Output Total 400 ml Balance 960 ml 480 ml -160 ml Intake Oral 960 ml 480 ml 240 ml Output Urine Total 400 ml # Voids 8 2 1 # Bowel Movements 0 0 0 Result Diagram: 10/20/16 0657 10/18/16 1740 A/P Problem List: (1) Acute CVA (cerebrovascular accident) Status: Acute Plan: Pt has severe lumbar spine stenosis and neuroforaminal stenosis. Gets routing injections from pain management. Suddenly lost strength in both legs and fell to the floor and was unable to get up. Family says his right arm was also weak and he was confused when they found him. neuroimaging shows acute left frontal cva. probably local atherosclerosis. so far no evidence for thrombembolic dz f/u holter cont plavix/statin neuro ordered cta brain to reevaluate right mca(felt to be most likely artifact on mra.) PT can be discharged tomorrow. (2) Spinal stenosis Status: Chronic Plan: multiple levels of lumbar spinal stenosis/neuroforaminal stenosis but more severe central spinal stenosis at L3/4 Pt follows with pain management and gets injections. (3) HTN (hypertension) Status: Chronic Plan: home meds Hugo Delacruz MD Oct 20, 2016 11:18
--- NOTE | 2016-10-20 16:04 | EC ---
Study Study Date:10/20/2016 STUDY CONCLUSIONS SUMMARY - Procedure narrative: Transthoracic echocardiography. Image quality was suboptimal. The study was technically limited. Scanning was performed from the parasternal, apical, and subcostal acoustic windows. - Left ventricle: The cavity size was normal. Wall thickness was normal. Systolic function was normal. The estimated ejection fraction was in the range of 55% to 60%. Wall motion was normal; there were no regional wall motion abnormalities. Doppler parameters are consistent with abnormal left ventricular relaxation (grade 1 diastolic dysfunction). - Aortic valve: Valve area: 2.21cm^2 (Vmax). - Tricuspid valve: Mild-moderate regurgitation. - Pulmonary arteries: PA peak pressure: 34mm Hg (S). If LV function is below 40, please consider prescribing an ACEI or ARB or document rationale for non-use. PROCEDURE DATA STUDY STATUS: Elective. Procedure: Transthoracic echocardiography. Image quality was suboptimal. The study was technically limited. Scanning was performed from the parasternal, apical, and subcostal acoustic windows. Study completion: The patient tolerated the procedure well. Transthoracic echocardiography. M-mode, complete 2D, complete spectral Doppler, and color Doppler. Height: Height: 70in. Weight: Weight: 170.6lb. Body mass index: BMI: 24.5kg/m^2. Body surface area: BSA: 1.95m^2. Patient status: Inpatient. CARDIAC ANATOMY LEFT VENTRICLE: The cavity size was normal. Wall thickness was normal. Systolic function was normal. The estimated ejection fraction was in the range of 55% to 60%. Wall motion was normal; there were no regional wall motion abnormalities. Doppler parameters are consistent with abnormal left ventricular relaxation (grade 1 diastolic dysfunction). AORTIC VALVE: Poorly visualized. Doppler: Transvalvular velocity was within the normal range. There was no stenosis. No regurgitation. Valve area: 2.21cm^2 (Vmax). Indexed valve area: 1.13cm^2/m^2 (Vmax). AORTA: Aortic root: The aortic root was normal in size. MITRAL VALVE: Structurally normal valve. Doppler: Transvalvular velocity was within the normal range. There was no evidence for stenosis. No regurgitation. LEFT ATRIUM: The atrium was normal in size. RIGHT VENTRICLE: The cavity size was normal. Wall thickness was normal. PULMONIC VALVE: Doppler: Transvalvular velocity was within the normal range. There was no evidence for stenosis. No regurgitation. TRICUSPID VALVE: Structurally normal valve. Doppler: Transvalvular velocity was within the normal range. Mild-moderate regurgitation. PULMONARY ARTERY: The main pulmonary artery was normal-sized. Systolic pressure was within the normal range. RIGHT ATRIUM: The atrium was normal in size. PERICARDIUM: There was no pericardial effusion. SYSTEMIC VEINS: Inferior vena cava: The vessel was normal in size. Patient weight: 170.6lb _Ejection fraction:_ 65-75% _Fractional shortening:_ 32% up to 5Kg 5-11.5Kg 11.6-22.9Kg 23-45Kg 45-57Kg Aortic Root 7-13 <17 13-22 17-27 17-27 LA diam 6-13 <23 24-38 33-47 37-40 RVID 10-17 7-15 7-15 7-18 8-17 LVIDd 12-22 <32 24-38 33-47 37-40 LVPW 2-4 3-6 5-7 6-8 7-8 IVS 2-4 3-6 5-7 6-8 7-8 BASIC MEASUREMENTS ADULT NORMAL Left ventricle LV internal dimension, ED, chordal 43.6 mm 43-52 level, PLAX LV internal dimension, ES, chordal 30.5 mm 23-38 level, PLAX Fractional shortening, chordal level, 30 % >29 PLAX LV posterior wall thickness, ED 9.06 mm IVS/LVPW ratio, ED 0.87 <1.3 Ventricular septum Septal thickness, ED 7.88 mm Aortic valve Leaflet separation 19 mm 15-26 BASIC MEASUREMENTS ADULT NORMAL Aortic valve Leaflet separation 19 mm 15-26 Aorta Root diameter, ED 26 mm 20-37 Left atrium Anterior-posterior dimension, ES 39 mm 19-40 Anterior-posterior dimension index, ES 2 cm/m^2 <2.2 LA/aortic root ratio 1.5 DOPPLER MEASUREMENTS ADULT NORMAL Main pulmonary artery Pressure, S *34 mm Hg =30 Aortic valve Peak velocity, S 124 cm/s Valve area, Vmax 2.21 cm^2 Valve area index, Vmax 1.13 cm^2/m^2 Tricuspid valve Regurgitant peak velocity 276 cm/s Peak RV-RA gradient, S 30 mm Hg Maximal regurgitant velocity 276 cm/s Systemic veins Estimated CVP 10 mm Hg Right ventricle RV pressure, S *40 mm Hg <30 Pulmonic valve Peak velocity, S 126 cm/s LEGEND: Mean values are shown as u=mean value. Asterisk (*) martinez values outside specified normal range. Prepared and signed by Zachary Canales [id number]
[2016-10-20] MEDS ORDERED: IOHEXOL 350 MG/ML 10 ML VIAL (for RAD DIAG) IV ONE (21:26)
--- NOTE | 2016-10-20 22:26 | RADRPT ---
EXAM DATE/TIME: 10/20/2016 21:16 [facility] COMPARISON: MRA BRAIN W/O CONTRAST, October 19, 2016, 11:53. INDICATIONS : Occlusion. IV CONTRAST: 80 cc Omnipaque 350 (iohexol) IV RADIATION DOSE: 17.97 CTDIvol (mGy) MEDICAL HISTORY : Cardiovascular disease. Chronic obstructive pulmonary disease. Gastroesophageal reflux disease.Chinchilla ry artery disease. Hypertension. Prostate cancer. SURGICAL HISTORY : Tonsillectomy. Cardiac catherization. ENCOUNTER: Subsequent ACUITY: 1 day PAIN SCALE: 0/10 LOCATION: cranial TECHNIQUE: Volumetric scanning was performed using a multi-row detector CT scanner. The data was post processed with a variety of visualization algorithms including full volume maximum intensity projection, multi -planar sliding thin slab reformation, curved planar reformation, and surface rendering techniques. Using automated exposure control and adjustment of the mA and/or kV according to patient size, radiat ion dose was kept as low as reasonably achievable to obtain optimal diagnostic quality images. FINDINGS: There is excellent visualization of the major intracranial arteries out to the second-order branch ve ssels. There is no evidence for aneurysm, vessel truncation or stenosis, and no evidence for vascula r malformation. Compared to recent MRA in the occlusion of the right middle cerebral artery has resolved. CONCLUSION: 1. Unremarkable CTA brain. Specifically the previously noted occlusion or severe stenosis in the righ t middle cerebral artery has resolved. Cresencio King MD on October 20, 2016 at 22:19 Board Certified Radiologist. This report was verified electronically.
[2016-10-20] MEDS: PRAVASTATIN SOD 20 MG TAB PO SCH (22:53)
[2016-10-21] VITALS (8 sets, daily range): BP systolic 116–166; BP diastolic 62–93; PULSE 75–89; RESP 16–20; TEMP 95.4–97.8; O2SAT 92–94
[2016-10-21] MEDS: GABAPENTIN 400 MG CAP PO SCH ×4 (06:00→23:38)
[2016-10-21] MEDS: ASPIRIN EC 325 MG TABEC PO SCH (07:31)
[2016-10-21] MEDS: PANTOPRAZOLE SOD 20 MG DELAYED RELEASE TAB PO SCH (07:31)
[2016-10-21] MEDS: FINASTERIDE 5 MG TAB PO SCH (07:31)
[2016-10-21] MEDS: traMADol HCL 50 MG TAB PO SCH ×3 (07:31→23:38)
[2016-10-21] MEDS: CLOPIDOGREL 75 MG TAB PO SCH (07:31)
--- NOTE | 2016-10-21 08:36 | HHI.PR ---
Subjective Remarks sr Objective Vital Signs Date Time Temp Pulse Resp B/P Pulse Ox O2 Delivery O2 Flow Rate FiO2 10/21/16 04:00 97.8 86 20 120/74 92 10/21/16 00:00 95.6 88 18 151/86 92 10/20/16 19:53 97.3 90 18 128/69 94 10/20/16 16:00 95.7 86 18 120/61 93 10/20/16 12:00 96.0 81 18 154/87 92 I/O 10/20/16 10/20/16 10/20/16 10/21/16 10/21/16 10/21/16 07:00 15:00 23:00 07:00 15:00 23:00 Intake Total 240 ml 720 ml 480 ml 240 ml Output Total 400 ml Balance -160 ml 720 ml 480 ml 240 ml Intake Oral 240 ml 720 ml 480 ml 240 ml Output Urine Total 400 ml # Voids 1 1 4 2 # Bowel Movements 0 1 1 Result Diagram: 10/20/16 0657 10/18/16 1740 Objective Remarks awake alert 5/5 ble wlks fairly well with walker Assessment and Plan Assessment and Plan imp small cva will check cta but r mca likley nl if echo nl and cta neg dc on plavix make sure jholter on fu office will need cardionet Umesh Alexander MD Oct 21, 2016 08:36
--- NOTE | 2016-10-21 10:45 | HM ---
Date Performed: 10/19/2016 Time Performed: 15:32:00 HOOKUP DATE: 10/19/16 03:32:00 PM Sat ANALYSIS START TIME: 10/19/2016 3:37:00 PM ANALYSIS END TIME: 10/20/2016 3:41:00 PM PATIENT AGE: 81 PATIENT HEIGHT: 70 PATIENT WEIGHT: 171 DRUG LIST PATIENT DIAGNOSIS: CVA TEST NARRATIVE: The patient's average heart rate was 83 BPM. No episodes of tachycardia wer e noted. No episodes of bradycardia were noted. No pauses exceeding 2.0 seconds were noted. 42 ventricular ectopics, which represented < 1% of the total beat count, were noted. The highest angel tricular ectopic frequency occurred from 01:00 AM to 02:00 AM Sun. During this time 18 VE(s) occurre d. Ventricular ectopics were observed as 42 isolated beat(s) only. No couplets or runs were noted. 2 supraventricular ectopics, which represented < 1% of the total beat count, were noted. The hig hest supraventricular ectopic frequency occurred from 02:00 PM to 03:00 PM Sun. During this time 2 S VE(s) occurred. No episodes of ST depression (defined as -1.0 mm or more) were noted in channel [address] . No episodes of [address] depression (defined as -1.0 mm or more) were noted in channel 2. No episodes of ST depression (defined as -1.0 mm or more) were noted in channel 3. No diary events were report ed by the patient. TEST INTERPRETATION: Holter monitor demonstrates normal Sinus rhythm . Throughout the holter tracing a rare PVC was noted. No repetative PVC's were seen. One burst of non sustained atrial tachycardia was seen lasting 6 beats. No other significant arrythmias were noted. Signed by : Umesh Dykes
[2016-10-21] MEDS ORDERED: GETGO ROLLING W1 MI1 (11:13)
--- NOTE | 2016-10-21 11:14 | HHI.FF ---
Face to Face Verification Diagnosis: (1) Acute CVA (cerebrovascular accident) (2) Weakness (3) Fall (4) HTN (hypertension) (5) Spinal stenosis Physical Therapy Order: Evaluate and Treat, Improve ambulation, Strength and gait training Home Health Nursing Order: Medical education Nursing assessment with vital signs I have seen patient Sean Shay on 10/21/16. My clinical findings support the need for the requested home health care services because: Deconditioned w/ increased weakness High risk of falls I certify that my clinical findings support that this patient is homebound because: Unsteady gait/balance Glendy Diez Oct 21, 2016 11:14 Avelino Melgar DO Oct 22, 2016 10:51
[2016-10-21] MEDS ORDERED: PLAV75TA29 PO (14:49)
--- NOTE | 2016-10-21 15:07 | HHI.PR ---
Subjective Remarks Pt without any specific complaints Pt anxious for discharge. BP elevated today with systolic in the 150-160's Objective Vitals Vital Signs Date Time Temp Pulse Resp B/P Pulse Ox O2 Delivery O2 Flow Rate FiO2 10/21/16 11:10 95.8 89 16 158/77 94 10/21/16 10:43 85 10/21/16 08:00 95.9 86 18 166/93 94 10/21/16 04:00 97.8 86 20 120/74 92 10/21/16 00:00 95.6 88 18 151/86 92 10/20/16 19:53 97.3 90 18 128/69 94 10/20/16 16:00 95.7 86 18 120/61 93 10/20/16 10/20/16 10/21/16 15:00 23:00 07:00 Intake Total 720 ml 480 ml 240 ml Balance 720 ml 480 ml 240 ml Intake Oral 720 ml 480 ml 240 ml # Voids 1 4 2 # Bowel Movements 1 1 Result Diagram: 10/20/16 0657 10/18/16 1740 Other Results Laboratory Tests Test 10/19/16 10/20/16 20:00 06:57 Urine Color YELLOW Urine Turbidity CLEAR Urine pH 5.5 Urine Specific [place] 1.015 Urine Protein NEG mg/dL Urine Glucose (UA) NEG mg/dL Urine Ketones NEG mg/dL Urine Occult Blood NEG Urine Nitrite NEG Urine Bilirubin NEG Urine Urobilinogen LESS THAN 2.0 MG/DL Urine Leukocyte Esterase NEG Urine Bacteria RARE /hpf Urine Mucus FEW /lpf Microscopic Urinalysis Comment CULT NOT INDICATED White Blood Count 7.3 TH/MM3 Red Blood Count 4.59 MIL/MM3 Hemoglobin 14.9 GM/DL Hematocrit 43.6 % Mean Corpuscular Volume 94.9 FL Mean Corpuscular Hemoglobin 32.4 PG Mean Corpuscular Hemoglobin 34.1 % Concent Red Cell Distribution Width 14.8 % Platelet Count 205 TH/MM3 Mean Platelet Volume 6.7 FL Neutrophils (%) (Auto) 72.1 % Lymphocytes (%) (Auto) 14.2 % Monocytes (%) (Auto) 12.6 % Eosinophils (%) (Auto) 0.9 % Basophils (%) (Auto) 0.2 % Neutrophils # (Auto) 5.3 TH/MM3 Lymphocytes # (Auto) 1.0 TH/MM3 Monocytes # (Auto) 0.9 TH/MM3 Eosinophils # (Auto) 0.1 TH/MM3 Basophils # (Auto) 0.0 TH/MM3 CBC Comment DIFF FINAL Differential Comment Imaging Last Impressions Head CTA 10/20/16 0000 Signed Impressions: Service Date/Time: Thursday, October 20, 2016 21:16 - CONCLUSION: 1. Unremarkable CTA brain. Specifically the previously noted occlusion or severe stenosis in the right middle cerebral artery has resolved. Cresencio King MD Neck Magnetic Resonance Angiography 10/19/16 1031 Signed Impressions: Service Date/Time: Wednesday, October 19, 2016 11:53 - CONCLUSION: 1. No significant stenosis within the carotid arteries. 2. Dominant left vertebral artery. Collin Henry MD Head Magnetic Resonance Angiography 10/19/16 1031 Signed Impressions: Service Date/Time: Wednesday, October 19, 2016 11:53 - CONCLUSION: Severe narrowing of the right M1 segment and almost complete occlusion of this segment. There is filling of the distal right middle cerebral artery. Collin Henry MD Brain MRI 10/19/16 0000 Signed Impressions: Service Date/Time: Wednesday, October 19, 2016 08:48 - CONCLUSION: 1. Focal lacunar infarct left parafalcine frontal lobe. 2. Nonspecific white matter changes likely chronic ischemic small vessel vasculopathy with similar changes and brainstem. Collin Henry MD Pelvis X-Ray 10/18/16 155 Signed Impressions: Service Date/Time: Tuesday, October 18, 2016 16:09 - CONCLUSION: 1. Mixed sclerotic and lytic lesion involving the subtrochanteric region of the right proximal femur which is nonspecific. 2. Degenerative changes and scoliosis of the lower lumbar spine. 3. Degenerative changes involving the hip joints bilaterally. 4. No acute fracture or dislocation. Sean Wu MD Foot X-Ray 10/18/16 4393 Signed Impressions: Service Date/Time: Tuesday, October 18, 2016 16:15 - CONCLUSION: 1. No acute fracture or dislocation. 2. Mild degenerative changes involving the right first tarsometatarsal and metatarsophalangeal joints. 3. Achilles calcaneal spur. Sean Wu MD Ankle X-Ray 10/18/16 1061 Signed Impressions: Service Date/Time: Tuesday, October 18, 2016 16:13 - CONCLUSION: 1. No acute fracture or dislocation. 2. Achilles calcaneal spur. Sean Wu MD Thoracic Spine MRI 10/18/16 Signed Impressions: Service Date/Time: Tuesday, October 18, 2016 19:35 - CONCLUSION: 1. No canal stenosis. No discrete disc protrusions and no cord impingement or cord edema. Mild to moderate degenerative disc disease throughout the thoracic spine. Cresencio King MD Lumbar Spine MRI 10/18/16 Signed Impressions: Service Date/Time: Tuesday, October 18, 2016 19:35 - CONCLUSION: 1. At L3-4 there is a focal moderate to severe central canal and lateral recess stenosis. 2. At L4-5 there is a mild canal and lateral recess stenosis. 3. L5-S1 there is bilateral spondylolysis with grade 1 anterolisthesis and moderate central canal stenosis. Moderate left-sided neural foraminal stenosis. 4. Facet arthropathy posteriorly with some enhancement around the posterior facet joints and between the spinous processes. Cresencio King MD Head CT 10/18/16 Signed Impressions: Service Date/Time: Tuesday, October 18, 2016 20:43 - CONCLUSION: Normal examination for a patient of this age. Cresencio King MD Chest X-Ray 10/18/16 Signed Impressions: Service Date/Time: Tuesday, October 18, 2016 22:02 - CONCLUSION: 1. Linear scarring and atelectasis at the lung bases. No effusion or pneumothorax. Cresencio King MD Cervical Spine MRI 10/18/16 Signed Impressions: Service Date/Time: Tuesday, October 18, 2016 19:35 - CONCLUSION: 1. No acute findings within the cervical spine. No fracture or spondylolisthesis. No significant cord compression or cord edema. Moderate degenerative disc disease results in effacement of the thecal sac around the cord at multiple levels between C3 and C7 but without significant cord compression. 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 - Gets routine injections from pain management. - Pt was admitted after he suddenly lost strength in both legs and fell to the floor and was unable to get up. Family says his right arm was also weak and he was confused when they found him. - MRI Brain (10/20) --> Focal lacunar infarct left parafalcine frontal lobe. Nonspecific white matter changes likely chronic ischemic small vessel vasculopathy with similar changes and brainstem. - Pt so far no evidence for thromboembolic dz - 2D echo --> Estimated EF 55-60%. Grade 1 diastolic dysfunction. Mild-moderate tricuspid regurgitation. PA peak pressure: 34mm Hg - Holter Monitor (10/19) --> NSR. Rare PVC. One burst of nonsustained atrial tachycardia was seen lasting 6 beats. No other significant arrhythmias were noted. - Resume home BP meds, resume Metoprolol today - Pt recommended for event monitor, made an appt for the pt for 10/23/16 @ 10: 00AM with [facility] for placement of event monitor. - PT - Cont. Plavix/Statin - DVT prophylaxis (2) Spinal stenosis Status: Chronic Plan: - Multiple levels of lumbar spinal stenosis/neuroforaminal stenosis but more severe central spinal stenosis at L3/4 - Pt follows with pain management and gets injections. (3) Fall Status: Acute Plan: - See above (4) Weakness Status: Acute Plan: - See above (5) HTN (hypertension) Status: Chronic Plan: - See above. Assessment and Plan Patient examined. Assessment and plan formulated with Glendy Diez PA-C. I agree with the above. Problem Qualifiers (1) Fall: Qualified Code: W19.XXXA - Fall, initial encounter Glendy Diez Oct 21, 2016 15:07 Avelino Melgar DO Oct 27, 2016 06:47
[2016-10-21] MEDS: METOPROLOL SUCCINATE 25 MG EXTENDED RELEASE TAB PO SCH (16:09)
[2016-10-21] MEDS: PRAVASTATIN SOD 20 MG TAB PO SCH (21:37)
[2016-10-22] VITALS (7 sets, daily range): BP systolic 126–153; BP diastolic 70–80; PULSE 72–78; RESP 18–20; TEMP 96–97.4; O2SAT 92–97
[2016-10-22] MEDS: GABAPENTIN 400 MG CAP PO SCH ×3 (06:35→15:50)
[2016-10-22] MEDS: PANTOPRAZOLE SOD 20 MG DELAYED RELEASE TAB PO SCH (07:55)
[2016-10-22] MEDS: ASPIRIN EC 325 MG TABEC PO SCH (07:55)
[2016-10-22] MEDS: traMADol HCL 50 MG TAB PO SCH ×2 (07:55→15:50)
[2016-10-22] MEDS: CLOPIDOGREL 75 MG TAB PO SCH (07:55)
[2016-10-22] MEDS: METOPROLOL SUCCINATE 25 MG EXTENDED RELEASE TAB PO SCH (07:55)
[2016-10-22] MEDS: FINASTERIDE 5 MG TAB PO SCH (07:55)
--- NOTE | 2016-10-22 08:03 | HHI.PR ---
Subjective Remarks sr Objective Vital Signs Date Time Temp Pulse Resp B/P Pulse Ox O2 Delivery O2 Flow Rate FiO2 10/22/16 04:04 96.0 77 19 139/78 94 10/22/16 00:08 78 10/22/16 00:06 97.4 78 20 135/77 95 10/21/16 20:06 97.5 75 20 116/65 94 10/21/16 16:00 95.7 84 18 125/62 92 10/21/16 15:54 95.4 84 18 125/62 92 10/21/16 11:10 95.8 89 16 158/77 94 10/21/16 10:43 85 I/O 10/21/16 10/21/16 10/21/16 10/22/16 10/22/16 10/22/16 07:00 15:00 23:00 07:00 15:00 23:00 Intake Total 240 ml 480 ml 720 ml 720 ml Output Total 600 ml Balance 240 ml -120 ml 720 ml 720 ml Intake Oral 240 ml 480 ml 720 ml 720 ml Output Urine Total 600 ml # Voids 2 2 5 5 # Bowel Movements 2 0 Result Diagram: 10/20/16 0657 10/18/16 1740 Objective Remarks awake alert 5/5 ble Assessment and Plan Assessment and Plan imp small cva cta r mca nl echo nl and cta neg dc on plavix holter neg fu office will need cardionet will signoff Umesh Alexander MD Oct 22, 2016 08:03
--- NOTE | 2016-10-22 16:06 | HHI.DS ---
Discharge Summary Admission Date Oct 18, 2016 at 23:10 Discharge Date: Oct 22, 2016 Admitting Diagnosis CVA (1) Acute CVA (cerebrovascular accident) Diagnosis: Principal (2) Spinal stenosis Diagnosis: Secondary (3) Fall Diagnosis: Secondary (4) Weakness Diagnosis: Secondary (5) HTN (hypertension) Diagnosis: Secondary Consultants Dr. Umesh Alexander - Neurology Brief History Pt has severe lumbar spine stenosis and neuroforaminal stenosis.Gets routing injections from pain management. Suddenly lost strength in both legs and fell to the floor and was unable to get up. Family says his right arm was also weak and he was confused when they found him. no hx of cva or afib. neuroimaging shows acute left frontal cva. probably local atherosclerosis. CBC/BMP: 10/20/16 0657 10/18/16 1740 Significant Findings Laboratory Tests Test 10/19/16 10/20/16 20:00 06:57 Urine Bacteria RARE /hpf (NONE) Urine Mucus FEW /lpf (OCC) Mean Platelet Volume 6.7 FL (7.0-11.0) Neutrophils (%) (Auto) 72.1 % (16.0-70.0) Monocytes (%) (Auto) 12.6 % (0.0-8.0) Imaging Last Impressions Head CTA 10/20/16 0000 Signed Impressions: Service Date/Time: Thursday, October 20, 2016 21:16 - CONCLUSION: 1. Unremarkable CTA brain. Specifically the previously noted occlusion or severe stenosis in the right middle cerebral artery has resolved. Cresencio King MD Neck Magnetic Resonance Angiography 10/19/16 1031 Signed Impressions: Service Date/Time: Wednesday, October 19, 2016 11:53 - CONCLUSION: 1. No significant stenosis within the carotid arteries. 2. Dominant left vertebral artery. Collin Henry MD Head Magnetic Resonance Angiography 10/19/16 1031 Signed Impressions: Service Date/Time: Wednesday, October 19, 2016 11:53 - CONCLUSION: Severe narrowing of the right M1 segment and almost complete occlusion of this segment. There is filling of the distal right middle cerebral artery. Collin Henry MD Brain MRI 10/19/16 0000 Signed Impressions: Service Date/Time: Wednesday, October 19, 2016 08:48 - CONCLUSION: 1. Focal lacunar infarct left parafalcine frontal lobe. 2. Nonspecific white matter changes likely chronic ischemic small vessel vasculopathy with similar changes and brainstem. Collin Henry MD Pelvis X-Ray 10/18/16 1555 Signed Impressions: Service Date/Time: Tuesday, October 18, 2016 16:09 - CONCLUSION: 1. Mixed sclerotic and lytic lesion involving the subtrochanteric region of the right proximal femur which is nonspecific. 2. Degenerative changes and scoliosis of the lower lumbar spine. 3. Degenerative changes involving the hip joints bilaterally. 4. No acute fracture or dislocation. Sean Wu MD Foot X-Ray 10/18/16 1555 Signed Impressions: Service Date/Time: Tuesday, October 18, 2016 16:15 - CONCLUSION: 1. No acute fracture or dislocation. 2. Mild degenerative changes involving the right first tarsometatarsal and metatarsophalangeal joints. 3. Achilles calcaneal spur. Sean Wu MD Ankle X-Ray 10/18/16 1555 Signed Impressions: Service Date/Time: Tuesday, October 18, 2016 16:13 - CONCLUSION: 1. No acute fracture or dislocation. 2. Achilles calcaneal spur. Sean Wu MD Thoracic Spine MRI 10/18/16 0000 Signed Impressions: Service Date/Time: Tuesday, October 18, 2016 19:35 - CONCLUSION: 1. No canal stenosis. No discrete disc protrusions and no cord impingement or cord edema. Mild to moderate degenerative disc disease throughout the thoracic spine. Cresencio King MD Lumbar Spine MRI 10/18/16 0000 Signed Impressions: Service Date/Time: Tuesday, October 18, 2016 19:35 - CONCLUSION: 1. At L3-4 there is a focal moderate to severe central canal and lateral recess stenosis. 2. At L4-5 there is a mild canal and lateral recess stenosis. 3. L5-S1 there is bilateral spondylolysis with grade 1 anterolisthesis and moderate central canal stenosis. Moderate left-sided neural foraminal stenosis. 4. Facet arthropathy posteriorly with some enhancement around the posterior facet joints and between the spinous processes. Cresencio King MD Head CT 10/18/16 0000 Signed Impressions: Service Date/Time: Tuesday, October 18, 2016 20:43 - CONCLUSION: Normal examination for a patient of this age. Cresencio King MD Chest X-Ray 10/18/16 Signed Impressions: Service Date/Time: Tuesday, October 18, 2016 22:02 - CONCLUSION: 1. Linear scarring and atelectasis at the lung bases. No effusion or pneumothorax. Cresencio King MD Cervical Spine MRI 10/18/16 0000 Signed Impressions: Service Date/Time: Tuesday, October 18, 2016 19:35 - CONCLUSION: 1. No acute findings within the cervical spine. No fracture or spondylolisthesis. No significant cord compression or cord edema. Moderate degenerative disc disease results in effacement of the thecal sac around the cord at multiple levels between C3 and C7 but without significant cord compression. Cresencio King MD PE at Discharge General: NAD, AAOx3 Chest: CTA Cardiac: Regular Abd: +BS, soft ND/NT Ext: No edema Hospital Course Pt has severe lumbar spine stenosis and neuroforaminal stenosis and gets routine injections from pain management. He was admitted after he suddenly lost strength in both legs and fell to the floor and was unable to get up. Family says his right arm was also weak and he was confused when they found him. Head CT (10/18) noted a normal examination for the pts age. Neurology was consulted at admission. Pt was placed on HOB, IVF, permissive HTN, neuro checks, PT ordered. MRI Brain (10/20) revealed a focal lacunar infarct left parafalcine frontal lobe, nonspecific white matter changes likely chronic ischemic small vessel vasculopathy with similar changes and brainstem. MRA Head (10/19) indicated severe narrowing of the right M1 segment and almost complete occlusion of this segment with filling of the distal right MCA. Due to this finding a CTA head was performed on 10/20 which was unremarkable, specifically the previously noted occlusion or severe stenosis in the right MCA had resolved. Workup for thromboembolic event has been negative so far. Pt was started on Plavix. 2D echo (10/20) Estimated EF 55-60%, grade 1 diastolic dysfunction, mild-moderate tricuspid regurgitation, and PA peak pressure is 34mm Hg. Holter Monitor (10/19) with NSR, rare PVC, one burst of nonsustained atrial tachycardia was seen lasting 6 beats but no other significant arrhythmias were noted. Lipid panel with triglycerides of 197, Total cholesterol 184, HDL 65 and LDL 80. He was resumed on Metoprolol XL 25mg daily on 2/13 with stabilization of his BP. Pt recommended for event monitor, and I made an appt for the pt for 10/23/16 @ 10:00AM with [facility] for placement of event monitor. Pt will be discharged with [facility]/PT He will need to followup with Dr. Alexander and associates in 2 weeks Pt will need to followup with his PCP, Dr. Sánchez, in 1 week. His BP is low/normal today. We will hold on resuming his Amlodipine and HCTZ at discharge. He will need to monitor his BP at home and keep a log of the readings for his PCP to review. Pt Condition on Discharge: Stable Discharge Disposition: Disch w/ Home Health Serv Discharge Instructions DIET: Follow Instructions for: Heart Healthy Diet Activities you can perform: Regular-No Restrictions Follow up Referrals: Cardiology - 10/23/[address] Dykes Neurology - 2 Weeks with Umesh Alexander MD PCP Follow-up - [address] Sánchez New Medications: Walker Rolling/GetGo (Walker Rolling/GetGo) 1 Mis Mis 1 EA .ROUTE DIRECTED #1 EA Clopidogrel (Plavix) 75 Mg Tab 75 MG PO DAILY cva #30 TAB Continued Medications: Aspirin DR (Aspirin 81) 81 Mg Tabdr 81 MG PO DAILY Ref 0 TAB Finasteride (Proscar) 5 Mg Tab 5 MG PO DAILY Do not crush. Manage Prostate Problems #30 Ref 0 TAB Gabapentin (Gabapentin) 400 Mg Cap 1200 CAP PO Q6HR #30 Ref 0 CAP Lovastatin (Lovastatin) 20 Mg Tab 20 MG PO DAILY Cholesterol Management #30 Ref 0 TAB Metoprolol Succinate ER 24 HR (Metoprolol Succinate ER 24 HR) 25 Mg Tab 25 MG PO DAILY #30 Ref 0 TAB Multiple Vitamin (Multi-Vitamin) 1 Tab Tab Omeprazole (Omeprazole) 20 Mg Tab 20 MG PO DAILY #30 Ref 0 TAB Tramadol ER 24 HR (Ultram ER) 300 Mg Aliyah 50 MG PO DAILY Pain Management #30 Ref 0 TAB Discontinued Medications: Amlodipine (Amlodipine) 10 Mg Tab 10 MG PO DAILY Blood Pressure Management #30 Ref [address] (Diclofenac Sodium [address]) 75 Mg Tabdr 75 MG PO BID #60 Ref 0 TAB Hydrochlorothiazide (Hydrochlorothiazide) 25 Mg Tab 25 MG PO DAILY #30 Ref 0 TAB Mineral Oil Liq (Mineral Oil Liq) 15 Ml Liq 30 ML PO DAILY PRN CONSTIPATION #480 Ref 0 ML Additional Information Patient examined. Assessment and plan formulated with Glendy Diez PA-C. I agree with the above. Glendy Diez Oct 22, 2016 16:06 Avelino Melgar DO Oct 27, 2016 06:48
--- NOTE | 2016-10-22 16:10 | HHI.DCPOC ---
Discharge Care Plan Diagnosis: (1) Acute CVA (cerebrovascular accident) (2) Weakness (3) Fall (4) HTN (hypertension) (5) Spinal stenosis Goals to Promote Your Health * To prevent worsening of your condition and complications - He was resumed on Metoprolol XL 25mg daily on 10/21 with stabilization of his blood pressure. We will hold on resuming his Amlodipine and HCTZ at discharge. - He will need to monitor his BP at home and keep a log of the readings for his PCP to review as these medications may need to be added back on. - Pt recommended for event monitor, and he has an appt for Friday, @ 10:00AM with [facility] for placement of event monitor. - He will need to followup with Dr. Alexander and associates in 2 weeks - Pt will need to followup with his PCP, Dr. Sánchez, in 1 week. - New medications include: - Plavix 75mg once daily Directions to Meet Your Goals Take your medications as prescribed Follow your dietary instruction Follow activity as directed Keep your appointments as scheduled Take your immunizations and boosters as scheduled If your symptoms worsen call your PCP, if no PCP go to Urgent Care Center or Emergency Room Smoking is Dangerous to Your Health. Avoid second hand smoke Call the 24-hour hour crisis hotline for domestic abuse at Glendy Diez Oct 22, 2016 16:09 Avelino Melgar DO Oct 27, 2016 06:49
[2016-12-11] MEDS ORDERED: LOSA25TA PO (13:13)
[2016-12-11] MEDS ORDERED: METO25TA3 PO (13:13)
[2016-12-11] MEDS ORDERED: FAMO1TAB30 PO (13:13)
== END 2016-10-22 17:13 | disposition home health service (06) | DRG 66 ==
LOC: NEPA 14:29 → NEDA 23:10 → N06B 10-19 02:37
PROVIDERS: ADMIT Hospitalist; ATTEND Hospitalist
DX: I63.529 Cerebral infarction due to unspecified occlusion or stenosis of unspecified anterior cerebral artery (principal); I07.1 Rheumatic tricuspid insufficiency; I10 Essential (primary) hypertension; M48.06 Spinal stenosis, lumbar region; N40.0 Benign prostatic hyperplasia without lower urinary tract symptoms; I25.10 Atherosclerotic heart disease of native coronary artery without angina pectoris; E78.00 Pure hypercholesterolemia, unspecified; K21.9 Gastro-esophageal reflux disease without esophagitis; Z79.82 Long term (current) use of aspirin; Z85.46 Personal history of malignant neoplasm of prostate
CPT/HCPCS: 70450; 70496; 70544; 70548; 70551; 71010; 72156; 72157; 72158; 72170; 73610; 73630; 80048; 80061; 81001; 82550; 82607; 83735; 84439; 84443; 84484; 85025; 85652; 93225; 93226; 93306; 96374; A9579; J2060; J7030; Q9967

== ENCOUNTER 2017-10-26 22:44 | Emergency (ER) | payer MEDICARE ==
[~2017-10-26] VITALS: Ht 177.8 cm; Wt 80.5 kg
[~2017-10-26 22:44] MED LIST changes: -AMLO10TA2 PO; -ASPI-110 PO; -DICL75TA PO; +FAMO1TAB30 PO; -HYDR25TA5 PO; +LOSA25TA PO; +METO25TA3 PO; -METO25TA6 PO; -MINEOIL2 PO; -OMEP20TA PO; +PLAV75TA29 PO; -PROS5TAB PO; -STOO100C
[2017-10-26 22:53] VITALS: BP 207/88; PULSE 70; RESP 18; TEMP 97.7; O2SAT 95
[2017-10-26 23:16] VITALS: BP 162/81; PULSE 78; RESP 16; O2SAT 99
[2017-10-26] MEDS ORDERED: TRAM1CAP (23:19)
[2017-10-26] MEDS ORDERED: SILVER NITR/POTASSIUM NITRATE APPLICATORS TOPICAL ONE (23:30)
[2017-10-26] MEDS ORDERED: AMOX875T PO (23:43)
--- NOTE | 2017-10-26 23:43 | PD ---
HPI Chief Complaint: Nosebleed Time Seen by Provider: 23:22 Travel History International Travel<30 days: No Contact w/Intl Traveler<30days: No Traveled to known affect area: No History of Present Illness HPI The patient is an 82-year-old male that has had left-sided epistaxis since 1600 today. The patient is on Plavix for stroke prevention. He states the bleeding stops and starts over and over. PFSH Past Medical History Hx Anticoagulant Therapy: Yes Arthritis: Yes Asthma: No Autoimmune Disease: No Anxiety: No Depression: No Heart Rhythm Problems: No Cancer: Yes (PROSTATE CA) Cardiac Catheterization: Yes Cardiovascular Problems: Yes High Cholesterol: Yes Chemotherapy: No Chest Pain: No Congestive Heart Failure: No COPD: Yes Cerebrovascular Accident: No Coronary Artery Disease: Yes Diabetes: No Diminished Hearing: No Diverticulitis: Yes Endocrine: No Gastrointestinal Disorders: Yes (acid reflux ) GERD: Yes Genitourinary: Yes Headaches: No Hiatal Hernia: No Heparin Induced Thrombocytopen: No Hypertension: Yes Immune Disorder: No Implanted Vascular Access Dvce: No Kidney Stones: No Musculoskeletal: Yes Neurologic: Yes (SPINAL STENOSIS) Psychiatric: No Reproductive: No Respiratory: Yes Immunizations Current: Yes Migraines: No Myocardial Infarction: No Radiation Therapy: Yes Renal Failure: No Seizures: No Sickle Cell Disease: No Sleep Apnea: No Thyroid Disease: No Ulcer: No Past Surgical History Abdominal Surgery: No AICD: No Arteriovenous Shunt: No Cardiac Surgery: No Coronary Artery Bypass Graft: No Ear Surgery: No Endocrine Surgery: No Eye Surgery: No Genitourinary Surgery: No Gynecologic Surgery: No Insulin Pump: No Joint Replacement: No Neurologic Surgery: No Oral Surgery: No Pacemaker: No Thoracic Surgery: No Tonsillectomy: Yes (as child ) Other Surgery: No Social History Alcohol Use: No Tobacco Use: No Substance Use: No Allergies-Medications (Allergen,Severity, Reaction): Coded Allergies: Sulfa (Sulfonamide Antibiotics) (Unverified Allergy, Unknown, 10/26/17) azithromycin (Unverified Allergy, Unknown, 10/26/17) erythromycin base (Unverified Allergy, Unknown, 10/26/17) codeine (Unverified Adverse Reaction, Intermediate, NAUSEA/VOMITING, ) Reported Meds & Prescriptions Reported Meds & Active Scripts Active Plavix (Clopidogrel Bisulfate) 75 Mg Tab 75 Mg PO DAILY Reported Tramadol ER 24 HR (Tramadol HCl) 300 Mg Caper 300 Mg DAILY Losartan (Losartan Potassium) 25 Mg Tab 12.5 Mg PO DAILY Metoprolol Tartrate 25 Mg Tab 25 Mg PO DAILY Famotidine 10 Mg Tab 10 Mg PO BID Lovastatin 20 Mg Tab 20 Mg PO DAILY Gabapentin 400 Mg Cap 1,200 Cap PO Q6HR Review of Systems Except as stated in HPI: all other systems reviewed are Neg Physical Exam Narrative GENERAL: The patient is alert, oriented 3 in minimal apparent distress with his epistaxis. His vital signs show blood pressure 162/81 but otherwise normal. SKIN: Focused skin assessment warm/dry. HEAD: Atraumatic. Normocephalic. EYES: Pupils equal and round. No scleral icterus. No injection or drainage. ENT: No nasal bleeding or discharge. Mucous membranes pink and moist. I cannot find the point of bleeding for cauterization. He does have slow intermittent bleeding and blood coursing down the posterior pharyngeal wall. I do not see any anterior bleeding. NECK: Trachea midline. No JVD. CARDIOVASCULAR: Regular rate and rhythm. No murmur appreciated. RESPIRATORY: No accessory muscle use. Clear to auscultation. Breath sounds equal bilaterally. GASTROINTESTINAL: Abdomen soft, non-tender, nondistended. Hepatic and splenic margins not palpable. MUSCULOSKELETAL: No obvious deformities. No clubbing. No cyanosis. No edema. NEUROLOGICAL: Awake and alert. No obvious cranial nerve deficits. Motor grossly within normal limits. Normal speech. PSYCHIATRIC: Appropriate mood and affect; insight and judgment normal. Data Data Last Documented VS Vital Signs Date Time Temp Pulse Resp B/P (MAP) Pulse Ox O2 Delivery O2 Flow Rate FiO2 10/26/17 23:16 78 16 162/81 (108) 99 Room Air 10/26/17 22:53 97.7 Orders Orders Silver Nitrate Applicators (Silver Nitra (10/26/17 23:30) MDM Medical Decision Making Medical Screen Exam Complete: Yes Emergency Medical Condition: Yes Medical Record Reviewed: Yes Differential Diagnosis Anterior epistaxis, posterior epistaxis, coagulopathy Narrative Course I cannot find any anterior epistaxis. The bleeding comes only on the left side and I suspect there is an area of anterior epistaxis but I cannot see it. The patient will be given a nasal packing to cover the posterior and anterior areas. He will also get amoxicillin. Diagnosis Primary Impression: Epistaxis Additional Instructions: As we discussed, follow-up with ENT to get the packing out. Usually this happens in 2-4 days. Med/Other Pt SpecificInfo: Prescription(s) given Scripts Amoxicillin (Amoxicillin) 875 Mg Tab 875 MG PO BID for Infection, #20 TAB 0 Refills Prov: Bryn Carrera MD 10/26/17 Disposition: 01 DISCHARGE HOME Condition: Stable Bryn Carrera MD Oct 26, 2017 23:43
[2017-10-26] MEDS ORDERED: AMOXICILLIN 875 MG TAB PO ONE (23:45)
[2017-10-27] VITALS: BP 180/87; PULSE 69; RESP 18; O2SAT 94
[2017-10-27] MEDS ORDERED: hydrALAZINE HCL 20 MG/ML VIAL IV PUSH ONE (00:15)
[2017-10-27 00:44] VITALS: BP 183/90; PULSE 70; RESP 16; O2SAT 99
[2017-10-27 01:01] VITALS: BP 154/80; PULSE 77; RESP 16
[2017-10-27 01:33] VITALS: BP 175/71; PULSE 77; RESP 16; O2SAT 100
== END 2017-10-27 01:36 | disposition home or self-care (01) ==
LOC: PHED 22:44
DX: R04.0 Epistaxis (principal); M19.90 Unspecified osteoarthritis, unspecified site; E78.00 Pure hypercholesterolemia, unspecified; J44.9 Chronic obstructive pulmonary disease, unspecified; I25.10 Atherosclerotic heart disease of native coronary artery without angina pectoris; K21.9 Gastro-esophageal reflux disease without esophagitis; I10 Essential (primary) hypertension; Z79.02 Long term (current) use of antithrombotics/antiplatelets; Z79.899 Other long term (current) drug therapy
CPT/HCPCS: 30905; 99284; J0360